=== PATIENT | male | born 1960 | race Two or more races ===

== ENCOUNTER 2018-12-30 17:18 | Emergency (ER) | payer MEDICAID ==
[~2018-12-30] VITALS: Ht 182.9 cm; Wt 83.9 kg
[2018-12-30] MEDS ORDERED: PAXIL10 MG ORAL (17:24)
--- NOTE | 2018-12-30 17:30 | NUR ---
ED Nurse Note: patient brought in by ambulance from [facility] living, he verbalized that he wants to hurt himself. patient states that he wants to hang himself. patient reported that this ideation started 3-4 days ago. patient is alert awake ambulatory.
--- NOTE | 2018-12-30 17:35 | NUR ---
ED Nurse Note: patient's big black plastic bags placed in locker #3, patient's umbrella labeled and placed next to the locker(too big to fit in the locker) patient's clothings placed in locker #1.
[2018-12-30] MEDS ORDERED: Haloperidol 5mg/ml Inj IM ONE (18:00)
--- NOTE | 2018-12-30 18:12 | Emergency Room Report ---
History of Present Illness General Chief Complaint: Suicidal Source: Patient, EMS (Og Azul MD) Present Illness HPI 58-year-old male presents ED for evaluation. Brought in by EMS area states that he is feeling depressed and hearing voices stating he wants to hurt himself. States others are trying hurt him at his snf. Notes history of psych. States that he takes Haldol and Paxil. States that he left his medication at the place. Denies alcohol use. Denies drug use. No other aggravating relieving factors. Denies any other associated symptoms (Og Azul MD) Allergies: Coded Allergies: No Known Allergies (Unverified , 12/30/18) Patient History Past Medical History: HTN, psych hx Past Surgical History: none Pertinent Family History: none Social History: Denies: smoking, alcohol use, drug use Immunizations: UTD Reviewed Nursing Documentation: PMH: Agreed; PSxH: Agreed (Og Azul MD) Nursing Documentation-PMH Past Medical History: No History, Except For Hx Hypertension: Yes History Of Psychiatric Problem: Yes (Og Azul MD) Review of Systems All Other Systems: negative except mentioned in HPI (Og Azul MD) Physical Exam Vital Signs Date Time Temp Pulse Resp B/P (MAP) Pulse Ox O2 Delivery O2 Flow Rate FiO2 12/30/18 17:21 98.4 84 18 129/85 100 Room Air Sp02 EP Interpretation: reviewed, normal General Appearance: no apparent distress, alert, GCS 15, non-toxic Head: normocephalic, atraumatic Eyes: bilateral eye normal inspection, bilateral eye PERRL ENT: hearing grossly normal, normal pharynx, no angioedema, normal voice Neck: full range of motion, supple/symm/no masses Respiratory: chest non-tender, lungs clear, normal breath sounds, speaking full sentences Cardiovascular #1: regular rate, rhythm, no edema Cardiovascular #2: 2+ carotid (R), 2+ carotid (L), 2+ radial (R), 2+ radial (L) , 2+ dorsalis pedis (R), 2+ dorsalis pedis (L) Gastrointestinal: normal bowel sounds, non tender, soft, non-distended, no guarding, no rebound Rectal: deferred Genitourinary: normal inspection, no CVA tenderness Musculoskeletal: back normal, gait/station normal, normal range of motion, non- tender Neurologic: alert, oriented x3, responsive, motor strength/tone normal, sensory intact, speech normal Psychiatric: anxious Reflexes: 3+ bicep (R), 3+ bicep (L), 3+ tricep (R), 3+ tricep (L), 3+ knee (R) , 3+ knee (L) Skin: normal color, no rash, warm/dry, well hydrated Lymphatic: no adenopathy (Og Azul MD) Medical Decision Making ER Course This patient continued to board in the emergency department. He remained comfortable and stable during my shift. He is awaiting transfer to [facility] inpatient psychiatric care. (Katerina Vanegas DO) Last Vital Signs Date Time Temp Pulse Resp B/P (MAP) Pulse Ox O2 Delivery O2 Flow Rate FiO2 12/30/18 17:21 98.4 84 18 129/85 100 Room Air (Og Azul MD) Referrals: NON PHYSICIAN (PCP) Og Azul MD Dec 30, 2018 18:12 Katerina Vanegas DO Dec 31, 2018 12:52
[2018-12-30 18:23] LABS: BASOPHILS % (AUTO) 1.9 % (0.0-2.0); EOSINOPHILS % (AUTO) 2.4 % (0.0-3.0); HEMATOCRIT 45.2 % (42.0-52.0); HEMOGLOBIN 15.2 G/DL (14.2-18.0); LYMPHOCYTES % (AUTO) 37.6 % (20.0-45.0); MEAN CORPUSCULAR VOLUME 87 FL (80-99); MONOCYTES % (AUTO) 10.7 % (1.0-10.0); NEUTROPHILS % (AUTO) 47.3 % (45.0-75.0); PLATELET COUNT 240 K/UL (150-450); RED BLOOD COUNT 5.18 M/UL (4.70-6.10); RED CELL DISTRIBUTION WIDTH 12.1 % (11.6-14.8); WHITE BLOOD COUNT 5.7 K/UL (4.8-10.8)
[2018-12-30 18:26] LABS: ANION GAP 7 mmol/L (5-15); BLOOD UREA NITROGEN 9 mg/dL (7-18); CALCIUM 9.5 MG/DL (8.5-10.1); CARBON DIOXIDE 31 MMOL/L (21-32); CHLORIDE 103 MMOL/L (98-107); CREATININE 0.9 MG/DL (0.55-1.30); POTASSIUM 3.9 MMOL/L (3.5-5.1); SODIUM 141 MMOL/L (136-145)
--- NOTE | 2018-12-30 18:30 | NUR ---
ED Nurse Note: sandwich/juice provided to the patient.
[2018-12-30 18:32] LABS: ALANINE AMINOTRANSFERASE 31 U/L (12-78); ALBUMIN 3.5 G/DL (3.4-5.0); ALBUMIN/GLOBULIN RATIO 1.1 (1.0-2.7); ALKALINE PHOSPHATASE 67 U/L (46-116); ASPARTATE AMINO TRANSFERASE 21 U/L (15-37); BILIRUBIN,TOTAL 0.7 MG/DL (0.2-1.0)
[2018-12-30 18:33] VITALS: BP 121/81
--- NOTE | 2018-12-30 19:12 | NUR ---
HAND-OFF: Report given to Araceli CHAPPELL. patient is in stable condition .
--- NOTE | 2018-12-30 21:15 | NUR ---
ER Nurse Note: Pt asleep, no signs of distress. Pt is calm. All needs have been met; all safety measures met. Sitter at bedside; will continue to montior.
[2018-12-30 22:26] VITALS: BP 126/78
--- NOTE | 2018-12-31 01:18 | NUR ---
ER Nurse Note: Pt continue to be asleep. No signs of distress, no complains of pain. All needs met; urinal at bedside, snacks provided, blackets given on request. Bed in lowest position, all safety measures met; will continue to montior with sitter at bedside.
[2018-12-31 03:36] VITALS: BP 124/76
--- NOTE | 2018-12-31 05:30 | NUR ---
ER Nurse Note: Pt asleep, no signs of distress. Social work or assisted trying to be reached for assisted. All safety measures met; will continue to montior.
[2018-12-31] MEDS ORDERED: Albuterol/Ipratropium 3ml neb HHN ONE (06:15)
--- NOTE | 2018-12-31 06:43 | NUR ---
ER Nurse Note: Pt got elton removed from head, no signs of infection, no complains of pain. Pt receieved breathing treatment; tolerating well. Pt stated he is willing to voluntarilly check in at a psych facility; engineering technologist, charge nurse, ULICES aware. Pt a&ox4, VSS, no signs of distress. Pt meal tray arrived; eating without difficulty. IVSL RTAC; patent. All safety measures met; will continue to montior.
[2018-12-31 07:06] VITALS: BP 111/76
--- NOTE | 2018-12-31 07:07 | NUR ---
ER Nurse Note: Report given to MISTI Steve for continuity of care. Pt a&ox4, VSS, ate breakfast, ambualted with steady gait. IV DC, site clean and bandaged. Belongings in locker #1 &3
--- NOTE | 2018-12-31 10:27 | NUR ---
ED Nurse Note:pt. was provided with food ,he is calm ans cooperative
[2018-12-31 10:34] VITALS: BP 117/73
--- NOTE | 2018-12-31 15:16 | NUR ---
ED Nurse Note:phone report given to [facility] -nurse Mariela
--- NOTE | 2018-12-31 15:17 | NUR ---
HAND-OFF: Report given to Giselle.
--- NOTE | 2018-12-31 15:20 | NUR ---
ED Nurse Note: received report from Evi and assumed care, pt vss, resp even and unlabored, report SI but denies HI/VH/AH at this time, pt states he doesn't have plan. pt given sandwich and water for food. will cont monitor.
[2018-12-31 16:00] VITALS: BP 140/89
--- NOTE | 2018-12-31 16:00 | NUR ---
ED Nurse Note: Ambulance personnel at the bedside for transer, pt is admitted to [facility] psychiatric unit, all belongings sent w/ pt, vss, resp even and unlabored on RA. report was given by previous nurse Evi.
== END 2018-12-31 16:00 ==
LOC: EDBD 17:18 → EMR 17:59
DX: R44.0 Auditory hallucinations (principal); F32.9 Major depressive disorder, single episode, unspecified; I10 Essential (primary) hypertension; Z79.899 Other long term (current) drug therapy
CPT/HCPCS: 36415; 80053; 80307; 80329; 85025; 94640; 94664; 96372; 99284; J1630; J7620